=== PATIENT | female | born 1995 | race Caucasian/White ===

== ENCOUNTER 2018-05-27 21:05 | Emergency (ER) | payer BC ==
[~2018-05-27] VITALS: Ht 167.6 cm; Wt 84.8 kg
[2018-05-27] MEDS ORDERED: IV NORMAL SALINE 1000ML BAG 1,000 ML IV ONE (22:15)
[2018-05-27] MEDS ORDERED: ONDANSETRON PF 4 MG/2 ML VIAL. IV ONE (22:15)
--- NOTE | 2018-05-27 22:28 | PHYS DOC ---
Past Medical History Past Medical History: No Pertinent History Past Surgical History: No Surgical History Alcohol Use: Rarely Drug Use: None Adult General Chief Complaint Chief Complaint: NAUSEA/VOMITING/DIARRHA HPI HPI Patient is a 23 year old female who presents with vomiting today but diarrhea yesterday and the day before. Patient states she has intermittent abdominal generalized cramping that comes and goes. She states that she's been having chills. Patient has not actually taken her temperature. Patient states she did take some Pepto today and did not help. Patient states her last period was in February and she has been trying to get and took a test in March but it was negative. Patient has no known drug allergy, takes no medications daily, has no medical history and has no surgical history. Review of Systems Review of Systems Constitutional: Denies fever or chills [] Eyes: Denies change in visual acuity, redness, or eye pain [] HENT: Denies nasal congestion or sore throat [] Respiratory: Denies cough or shortness of breath [] Cardiovascular: No additional information not addressed in HPI [] GI: Abdominal Cramping pain, nausea, vomiting, Diarrhea. Denies bloody stools. [] : Denies dysuria or hematuria [] Musculoskeletal: Denies back pain or joint pain [] Integument: Denies rash or skin lesions [] Neurologic: Denies headache, focal weakness or sensory changes [] Endocrine: Denies polyuria or polydipsia [] All other systems were reviewed and found to be within normal limits, except as documented in this note. Current Medications Current Medications Current Medications Medications (Trade) Dose Ordered Sig/[facility] Start Time Stop Time Status Last Admin Dose Admin Dextrose/Sodium Chloride 500 ml @ 0 mls/hr 1X ONCE 05/28/18 00:45 05/28/18 00:46 DC 05/28/18 00:45 500 MLS/HR Ondansetron HCl (Zofran) 4 mg 1X ONCE 05/27/18 22:15 05/27/18 22:16 DC 05/27/18 23:30 4 MG Sodium Chloride 1,000 ml @ 1,000 mls/hr 1X ONCE 05/28/18 01:00 05/28/18 01:59 DC Allergies Allergies Allergies Coded Allergies Type Severity Reaction Last Updated Verified No Known Drug Allergies 05/27/18 No Physical Exam Physical Exam Constitutional: Well developed, well nourished, no acute distress, non-toxic appearance. [] HENT: Normocephalic, atraumatic, bilateral external ears normal, oropharynx moist, no oral exudates, nose normal. [] Eyes: PERRLA, EOMI, conjunctiva normal, no discharge. [] Neck: Normal range of motion, no tenderness, supple, no stridor. [] Cardiovascular:Heart rate regular rhythm, no murmur [] Lungs & Thorax: Bilateral breath sounds clear to auscultation [] Abdomen: Bowel sounds normal, soft, generalized tenderness, no masses, no pulsatile masses. [] Skin: Warm, dry, no erythema, no rash. [] Back: No tenderness, no CVA tenderness. [] Extremities: No tenderness, no cyanosis, no clubbing, ROM intact, no edema. [] Neurologic: Alert and oriented X 3, normal motor function, normal sensory function, no focal deficits noted. [] Psychologic: Affect normal, judgement normal, mood normal. [] Current Patient Data Vital Signs Vital Signs Date Time Temp Pulse Resp B/P (MAP) Pulse Ox O2 Delivery O2 Flow Rate FiO2 05/28/18 02:30 20 102/55 (71) 100 05/27/18 21:44 98.0 98 Room Air 98.0 Lab Values Laboratory Tests Test 05/27/18 23:20 White Blood Count 9.2 x10^3/uL (4.0-11.0) Red Blood Count 4.63 x10^6/uL (3.50-5.40) Hemoglobin 13.7 g/dL (12.0-15.5) Hematocrit 39.4 % (36.0-47.0) Mean Corpuscular Volume 85 fL (79-100) Mean Corpuscular Hemoglobin 30 pg (25-35) Mean Corpuscular Hemoglobin Concent 35 g/dL (31-37) Red Cell Distribution Width 13.3 % (11.5-14.5) Platelet Count 263 x10^3/uL (140-400) Neutrophils (%) (Auto) 66 % (31-73) Lymphocytes (%) (Auto) 27 % (24-48) Monocytes (%) (Auto) 5 % (0-9) Eosinophils (%) (Auto) 0 % (0-3) Basophils (%) (Auto) 1 % (0-3) Neutrophils # (Auto) 6.1 x10^3uL (1.8-7.7) Lymphocytes # (Auto) 2.5 x10^3/uL (1.0-4.8) Monocytes # (Auto) 0.5 x10^3/uL (0.0-1.1) Eosinophils # (Auto) 0.0 x10^3/uL (0.0-0.7) Basophils # (Auto) 0.1 x10^3/uL (0.0-0.2) Urine Collection Type Unknown Urine Color Yellow Urine Clarity Clear Urine pH 5.5 Urine Specific [place] 1.025 Urine Protein Negative mg/dL (NEG-TRACE) Urine Glucose (UA) Negative mg/dL (NEG) Urine Ketones (Stick) >=80 mg/dL (NEG) Urine Blood Negative (NEG) Urine Nitrite Negative (NEG) Urine Bilirubin Negative (NEG) Urine Urobilinogen Dipstick 0.2 mg/dL (0.2 mg/dL) Urine Leukocyte Esterase Negative (NEG) Urine RBC Occ /HPF (0-2) Urine WBC Rare /HPF (0-4) Urine Squamous Epithelial Cells Many /LPF Urine Bacteria Moderate /HPF (0-FEW) Urine Mucus Marked /LPF Urine Test Positive (NEG) Maternal Serum HCG Beta Subunit 37200 mIU/mL (0-5) H Sodium Level 138 mmol/L (136-145) Potassium Level 3.7 mmol/L (3.5-5.1) Chloride Level 103 mmol/L (98-107) Carbon Dioxide Level 23 mmol/L (21-32) Anion Gap 12 (6-14) Blood Urea Nitrogen 7 mg/dL (7-20) Creatinine 0.6 mg/dL (0.6-1.0) Estimated GFR (Cockcroft-Gault) 121.8 BUN/Creatinine Ratio 12 (6-20) Glucose Level 87 mg/dL (70-99) Calcium Level 9.5 mg/dL (8.5-10.1) Total Bilirubin 0.5 mg/dL (0.2-1.0) Aspartate Amino Transferase (AST) 20 U/L (15-37) Alanine Aminotransferase (ALT) 36 U/L (14-59) Alkaline Phosphatase 65 U/L (46-116) Total Protein 8.0 g/dL (6.4-8.2) Albumin 4.2 g/dL (3.4-5.0) Albumin/Globulin Ratio 1.1 (1.0-1.7) Lipase 114 U/L (73-393) Urine Opiates Screen Neg (NEG) Urine Methadone Screen Neg (NEG) Urine Barbiturates Neg (NEG) Urine Phencyclidine Screen Neg (NEG) Urine Amphetamine/Methamphetamine Neg (NEG) Urine Benzodiazepines Screen Neg (NEG) Urine Cocaine Screen Neg (NEG) Urine Cannabinoids Screen Neg (NEG) Urine Ethyl Alcohol Neg (NEG) Laboratory Tests 05/27/18 23:20 Laboratory Tests 05/27/18 23:20 EKG EKG [] Radiology/Procedures Radiology/Procedures PROCEDURE: OB <14 WKS W/TV INDICATION: n/v, irreg cycles lmp mid february COMPARISON: None. TECHNIQUE: Grayscale and color ultrasound images uterus and adnexa. Transabdominal and transvaginal images obtained. Transvaginal images were obtained to better evaluate regions that were not well seen on transabdominal images FINDINGS: Uterus: 98 x 65 x 48 mm. Intrauterine gestational sac is identified with a pole with crown-rump length of 8 mm and heart beat of 122. Estimated gestational age 6 weeks 5 days. Amniotic fluid unremarkable. Too early in to evaluate placenta. Nabothian cyst suspected. Right Ovary: 26 x 23 x 18 mm. Left Ovary: 35 x 26 x 23 mm. Vascular flow seen to the ovaries. Small fluid in cervical region. IMPRESSION: 1. Intrauterine is identified with a positive heartbeat and estimated due date of 01/16/2019. 2. Routine anomaly screening at 18-22 weeks Electronically signed by: Analy Velazquez MD (05/28/2018 1:45 AM) [facility] DICTATED and SIGNED BY: ANALY VELAZQUEZ MD DATE: 05/28/18 0140 Course & Med Decision Making Course & Med Decision Making Patient is a 23 year old female who presents with vomiting today but diarrhea yesterday and the day before. Patient states she has intermittent abdominal generalized cramping that comes and goes. She states that she's been having chills. Patient has not actually taken her temperature. Patient states she did take some Pepto today and did not help. Patient states her last period was in February and she has been trying to get and took a test in March but it was negative. Patient has no known drug allergy, takes no medications daily, has no medical history and has no surgical history. Abdomen is soft, without masses, and has a generalized tenderness all over her abdomen with palpation. It is pink warm and dry. Patient denies any urinary symptoms. All bowel sounds are active. There is no rebound tenderness or guarding. Lungs are clear to auscultation. Heart rate is regular without murmur. Patient's current vital signs are 140/84, 18 respirations, 98 heart rate, 98.0 temperature. Patient denies headache, chest pain, shortness of breath, numbness, tingling, weakness. Patient neurologically intact and alert and oriented. Assumed care of pt and pt was found to have positive HCG on UA with >80 ketones. Pt was re-evaluated by this provider exam is normal limits with no abdominal tenderness on palpation. Patient's abdomen is soft with no rigidity or distention. She reports with initial IV fld bolus abd pain had improved- she denies any nausea and is nontoxic in appearance. Discussed pending HCG quant. and plans for US to further eval. Pt will be given additional flds- D5 1/2 NS ordered. 0145: Discussed test results with pt and her family- pt is in no distress/happy and excited regarding confirmation. Discussed ultrasound results with reports of " Intrauterine is identified with a positive heartbeat at 122 and estimated due date of 01/16/2019". Discussed dehydration. Discussed need to establish THERAPEUTIC ACTIVITIES SERVICES WORKER for eval in next 2-3 days for re-evaluation. Indepth conversation was had with pt and family regarding signs and symptoms for patient to return to ER for. Patient advised on daily vitamins. Patient 's boyfriend Jama reports he plans to get some first thing in the morning. At this time patient denies any abdominal pain and denies having any vaginal bleeding or pelvic pain/pressure. Patient remains nontoxic in appearance and in no visible distress. Education provided on signs and symptoms to return to ER for an discharge instructions were discussed. Will provide patient with THERAPEUTIC ACTIVITIES SERVICES WORKER and community clinic/physician resources with discharge paperwork. Pt's case and plan of care was discussed with Dr. De Souza. Javi Disclaimer Javi Disclaimer This electronic medical record was generated, in whole or in part, using a voice recognition dictation system. Departure Departure Impression: Primary Impression: test performed, confirmed Additional Impressions: Nausea and vomiting during Abdominal pain during Dehydration during Disposition: 01 HOME, SELF-CARE Condition: STABLE Referrals: UNKNOWN PCP NAME (PCP) Patient Instructions: Abdominal Pain During , Dehydration, Adult, Nausea and Vomiting, Additional Instructions: As discussed you should take vitamins daily. It is important for you to establish an THERAPEUTIC ACTIVITIES SERVICES WORKER doctor and have follow-up within the next 2-3 days if possible for reevaluation. Increase fluid intake as discussed. With any concerns or worsening symptoms return to the emergency department if you have not established an THERAPEUTIC ACTIVITIES SERVICES WORKER doctor. [place] [address] which your THERAPEUTIC ACTIVITIES SERVICES WORKER will want to know for re- evaluation of your . Problem Qualifiers MAGDALENA CARABALLO APRN May 27, 2018 22:28 VICKIE TORRES APRN May 28, 2018 02:03
[2018-05-27 23:30] LABS: BASO # 0.1 x10^3/uL (0.0-0.2); BASO % 1 % (0-3); EOS % 0 % (0-3); HEMATOCRIT 39.4 % (36.0-47.0); HEMOGLOBIN 13.7 g/dL (12.0-15.5); LYMPH # 2.5 x10^3/uL (1.0-4.8); LYMPH % 27 % (24-48); MEAN CORPUSCULAR HEMOGLOBIN 30 pg (25-35); MEAN CORPUSCULAR HGB CONC 35 g/dL (31-37); MEAN CORPUSCULAR VOLUME 85 fL (79-100); MONO # 0.5 x10^3/uL (0.0-1.1); MONO % 5 % (0-9); NEUT # 6.1 x10^3uL (1.8-7.7); NEUT % 66 % (31-73); PLATELET COUNT 263 x10^3/uL (140-400); RED BLOOD COUNT 4.63 x10^6/uL (3.50-5.40); RED CELL DISTRIBUTION WIDTH 13.3 % (11.5-14.5); WHITE BLOOD COUNT 9.2 x10^3/uL (4.0-11.0)
[2018-05-27 23:41] LABS: CALCIUM 9.5 mg/dL (8.5-10.1); CREATININE 0.6 mg/dL (0.6-1.0); GFR 121.8; POTASSIUM 3.7 mmol/L (3.5-5.1)
[2018-05-27 23:42] LABS: BILIRUBIN,URINE NEGATIVE (NEG); CLARITY,URINE CLEAR; COLOR,URINE YELLOW; NITRITE,URINE NEGATIVE (NEG); PH,URINE 5.5; PROTEIN,URINE NEGATIVE (NEG-TRACE); UROBILINOGEN,URINE 0.2 mg/dL (0.2 mg/dL)
[2018-05-27 23:47] LABS: ALBUMIN 4.2 g/dL (3.4-5.0); ALBUMIN/GLOBULIN RATIO 1.1 (1.0-1.7); TOTAL BILIRUBIN 0.5 mg/dL (0.2-1.0)
[2018-05-27 23:48] LABS: BACTERIA,URINE MODERATE /HPF (0-FEW); BARBITURATES NEG (NEG); BENZODIAZEPINES NEG (NEG); CANNABINOIDS NEG (NEG); COCAINE NEG (NEG); METHADONE NEG (NEG); OPIATES NEG (NEG); PHENCYCLIDINE NEG (NEG); RBC,URINE OCC /HPF (0-2); SQUAMOUS EPITHELIAL CELL,UR MANY /LPF; WBC,URINE RARE /HPF (0-4)
[2018-05-27 23:52] LABS: AMPHETAMINE/METHAMPHETAMINE NEG (NEG)
[2018-05-27 23:56] LABS: U PREG PATIENT POSITIVE (NEG)
[2018-05-28] MEDS ORDERED: IV DEXTROSE 5 %-0.45 % NACL 500 ML IV ONE (00:45)
[2018-05-28] MEDS ORDERED: IV NORMAL SALINE 1000ML BAG 1,000 ML IV ONE ×2 (01:00)
--- NOTE | 2018-05-28 01:48 | RAD ---
INDICATION: n/v, irreg cycles lmp mid february COMPARISON: None. TECHNIQUE: Grayscale and color ultrasound images uterus and adnexa. Transabdominal and transvaginal images obtained. Transvaginal images were obtained to better evaluate regions that were not well seen on transabdominal images FINDINGS: Uterus: 98 x 65 x 48 mm. Intrauterine gestational sac is identified with a pole with crown-rump length of 8 mm and heart beat of 122. Estimated gestational age 6 weeks 5 days. Amniotic fluid unremarkable. Too early in to evaluate placenta. Nabothian cyst suspected. Right Ovary: 26 x 23 x 18 mm. Left Ovary: 35 x 26 x 23 mm. Vascular flow seen to the ovaries. Small fluid in cervical region. IMPRESSION: 1. Intrauterine is identified with a positive heartbeat and estimated due date of 01/16/2019. 2. Routine anomaly screening at 18-22 weeks Electronically signed by: Micky Trammell MD (05/28/2018 1:45 AM) [facility]
[2018-05-28 02:30] VITALS: BP 102/55
== END 2018-05-28 03:01 | disposition home or self-care (01) ==
LOC: ER 21:05
DX: O21.8 Other vomiting complicating pregnancy (principal); E86.0 Dehydration; R10.84 Generalized abdominal pain; R19.7 Diarrhea, unspecified; Z3A.01 Less than 8 weeks gestation of pregnancy
CPT/HCPCS: 36415; 76801; 76817; 80053; 80307; 81001; 81025; 83690; 84702; 85025; 87086; 96361; 96374; 99285; J2405; J7030; 96360; G0479